=== PATIENT | female | born 1970 | race Two or more races ===

== ENCOUNTER 2025-07-25 11:54 | Emergency (ER) | payer OTHER ==
[~2025-07-25] VITALS: Ht 170.2 cm; Wt 77.1 kg
[2025-07-25] MEDS ORDERED: FAMOTIDINE20 MG PO (12:21)
[2025-07-25] MEDS ORDERED: HYOSCYAMINE0.125 M1 (12:21)
[2025-07-25] MEDS ORDERED: CIPROFLOXACIN500 MG PO (12:21)
[2025-07-25] MEDS ORDERED: BIOTINEX1 EACH PO (12:21)
[2025-07-25] MEDS ORDERED: ONDANSETRON HCL8 MG (12:21)
[2025-07-25] MEDS ORDERED: NORVASC10 MG PO (12:22)
[2025-07-25] MEDS ORDERED: ZESTRIL40 M1 PO (12:22)
[2025-07-25] MEDS ORDERED: ONDANSETRON HCL 2 MG/ML VIAL IV STA (12:32)
[2025-07-25] MEDS ORDERED: FAMOTIDINE/PF 20 MG/2 ML VIAL IV STA (12:32)
[2025-07-25] MEDS ORDERED: 0.9 % SODIUM CHLORIDE 1,000 ML IV STA (12:32)
[2025-07-25] MEDS ORDERED: METOCLOPRAMIDE HCL 5 MG/ML VIAL IV STA (12:33)
[2025-07-25] MEDS ORDERED: LOPERAMIDE HCL 2 MG CAPSULE PO ONE (12:45)
[2025-07-25] MEDS ORDERED: FAMOTIDINE/PF 20 MG/2 ML VIAL ONE (12:53)
[2025-07-25] MEDS ORDERED: ONDANSETRON HCL 2 MG/ML VIAL ONE (12:53)
[2025-07-25] MEDS ORDERED: METOCLOPRAMIDE HCL 5 MG/ML VIAL ONE (12:53)
[2025-07-25 14:18] LABS: BASO % 0.3 % (0.1-1.2); EOS # 0.11 (0.04-0.54); EOS % 1.7 % (0.7-7.0); LYMPH # 1.60 (1.18-3.74); LYMPH % 25.2 % (19.3-53.1); MEAN PLATELET VOLUME 10.00 fl (9.4-12.4); MONO # 0.77 (0.24-0.82); NEUT # 3.81 (1.56-6.13); NEUT % 60.2 % (34.0-71.1); RED CELL DISTRIBUTION WIDTH 13.1 % (11.6-14.4)
[2025-07-25 14:51] LABS: MONO % 12.1 % (4.7-12.5)
[2025-07-25 15:16] LABS: BUN CREA RATIO 20.0 (7.0-25.0); CREATININE SERUM 0.59 mg/dL (0.55-1.02); GFR 105.44; GLUCOSE FASTING 98.0 mg/dL (65-100); OSMOLALITY SERUM 279.0 MOSM/KG (275-295)
== END 2025-07-25 17:28 | disposition home or self-care (01) ==
LOC: ER 11:54
PROVIDERS: General Practice
DX: K52.89 Other specified noninfective gastroenteritis and colitis (principal); Z88.0 Allergy status to penicillin; Z88.6 Allergy status to analgesic agent